=== PATIENT | female | born 1965 | race Caucasian/White ===

== ENCOUNTER 2021-05-05 17:32 | Emergency (ER) | payer OTHER ==
[2021-05-05 17:46] VITALS: BP 161/89; PULSE 86; TEMP 99.2; BMI 30.9
[2021-05-05] MEDS ORDERED: KETOROLAC TROMETHAMINE 30 MG/1 ML VIAL ONE (18:03)
[2021-05-05] MEDS ORDERED: KETOROLAC TROMETHAMINE 60 MG/2 ML VIAL IM ONE (18:03)
[2021-05-05] MEDS ORDERED: CYCLOBENZAPRINE HCL 10 MG TABLET (FP) PO ONE (18:03)
[2021-05-05] MEDS ORDERED: CYCLOBENZAPRINE HCL 10 MG TABLET (FP) ONE (18:03)
== END 2021-05-05 18:38 | disposition home or self-care (01) ==
LOC: FER 17:32
PROC: 3E0233Z Introduction of Anti-inflammatory into Muscle, Percutaneous Approach (ICD-10-PCS; principal; 2021-05-05)
DX: M17.11 Unilateral primary osteoarthritis, right knee (principal); M54.31 Sciatica, right side
CPT/HCPCS: 99284-25